=== PATIENT | female | born 1975 | race Hispanic/Latino ===

== ENCOUNTER 2017-03-12 18:43 | Emergency (ER) | payer SELFPAY ==
[~2017-03-12] VITALS: Ht 162.6 cm; Wt 70.5 kg
[2017-03-12 19:03] VITALS: BP 129/67; PULSE 75; RESP 16; O2SAT 100
[2017-03-12 19:58] LABS: BASOPHILS % (AUTO) 0.3 % (0-3); EOSINOPHILS % (AUTO) 3.3 % (0-5); MONOCYTES % (AUTO) 6.6 % (4-12); Mean Corpuscular Hemoglobin 26.9 pg (27.0-35.0); Mean Corpuscular Volume 81.6 fL (81-100); NEUTROPHILS % (AUTO) 42.6 % (40-74); Platelet Count 324 bil/L (150-400)
--- NOTE | 2017-03-12 19:58 | ED.REPORT ---
HPI-Syncope Date of Service Mar 12, 2017 ED Provider: Usman Garcia MD Lorna Dawson is a pleasant 41-year-old woman who denies any medical history, she presents to the [facility] emergency department after syncopal event resulting in her "falling on her face" she reports feeling dizzy mildly short of breath prior to the event. She says she was having an argument with her 18-year-old daughter when this occurred. This has happened 3 previous times , most recent was 9 months ago, she has no primary care doctor and is never seek medical attention for this. She is not on any medications. She denies any current lightheadedness, dizziness, nausea, vomiting, shortness of breath, or chest pain at rest. She does complain of left shoulder and shoulder blade pain, with some paresthesias into her right hand, she said that this has been going on for nearly one year and is not new but since the fall pain has been worse. Daughter witnessed the fall, stated she lost consciousness for roughly 25 seconds. Patient denies being hit, kicked, pushed, or punched. Nursing Notes Stated Complaint: CHEST PAIN Chief Complaint: Chest Pain Nursing Notes Reviewed: Yes Allergies: Coded Allergies: No Known Allergies (Unverified , 03/12/17) General Time Seen by Provider: 19:04 Chief Complaint Lost consciousness Past Medical History Past Medical History Denies any medical problems or medical history Chronic right shoulder and arm pain Past Surgical History Denies having any surgeries Family History Noncontributory Smoking History Never Smoker Social History Lives with family Alcohol Use: Denies alcohol use Drug Use: Denies drug use Occupation Works as a production team member Review of Systems Complete sys rev & neg: except as marked. Physical Exam General: Laying in bed, no apparent distress. HEENT: Normocephalic, bilateral cheeks appear sriram, conjunctiva pink, extraocular muscles intact, there is no pain around the orbit, mandible, zygus, sphenoid, mastoid, TMs intact bilaterally, mucous membranes moist, tongue and oropharynx are atraumatic there is cervical tenderness, midline tenderness from C2 to C7. Cardiovascular: Regular rate and rhythm, no clicks murmurs rubs, peripheral pulses 2/4 equal bilaterally there is mild tenderness to right costochondral joints and clavicle. Patient states it radiates into her right shoulder. Pulmonary: Clear to auscultation bilaterally, no W/R/R. Abdominal: Soft to palpation, bowel sounds present 4, no hepatosplenomegaly. Negative rebound. Extremities: No edema appreciated. There is tenderness at the very medial portion of right scapula, as well as the overlying paraspinal musculature the right thorax, no ecchymosis, no bruising. Neuro: Neurologically grossly intact, strength is equal bilaterally upper and lower extremities. MSK: able to move extremities on their own volition, strength 5 out of 5 equal bilaterally to upper and lower extremities. Initial Vital Signs Vital Signs (First) Date Time Temp Pulse Resp B/P Pulse Ox O2 Delivery O2 Flow Rate FiO2 03/12/17 19:03 36.8 75 16 129/67 100 Room Air Initial VS: Reviewed Interpretation & Diagnostics Interpretation & Diagnostics: Cervical spine CAT scan performed 03/12/2017 IMPRESSION: 1. No acute cervical spine injury. 2. Left low-density, partially calcified thyroid nodule. Nonemergent thyroid ultrasound recommended to further characterize this finding. 3. Questionable right apical pulmonary mass versus pulmonary scar. Dedicated CT of the chest recommended to further characterize this finding. Neoplasm cannot be excluded. Note: The preliminary [facility] interpretation and the final report are concordant. Dictated by: Renetta Mazariegos M.D. on 03/12/2017 at 20:55 Lab Results Interpretation Result Diagram: 03/12/17194403/12/171944 Test 03/12/17 19:45 White Blood Count 7.6th/mm3 (3.8-10.1) Red Blood Count 5.53mil/mm3 (3.90-5.20) Hemoglobin 14.9g/dL (12.0-15.6) Hematocrit 45.1% (35.0-46.0) Mean Corpuscular Volume 81.6fL (81-100) Mean Corpuscular Hemoglobin 26.9pg (27.0-35.0) Mean Corpuscular Hemoglobin Concent 33.0% (32.0-37.0) Red Cell Distribution Width 14.3% (12.3-15.4) Platelet Count 324bil/L (150-400) Neutrophils (%) (Auto) 42.6% (40-74) Lymphocytes (%) (Auto) 47.2% (14-46) Monocytes (%) (Auto) 6.6% (4-12) Eosinophils (%) (Auto) 3.3% (0-5) Basophils (%) (Auto) 0.3% (0-3) Sodium Level 137mEq/L (134-144) Potassium Level 3.7mEq/L (3.5-5.2) Chloride Level 98mEq/L (97-108) Carbon Dioxide Level 24mmol/L (18-29) Blood Urea Nitrogen 17mg/dL (6-24) Creatinine 1.07mg/dL (0.57-1.00) Estimat Glomerular Filtration Rate 81mL/min (>59) Glucose Level 116mg/dL (60-99) Calcium Level 9.7mg/dL (8.5-10.1) Magnesium Level 2.4mg/dL (1.6-2.6) Total Bilirubin 0.3mg/dL (0.0-1.2) Aspartate Amino Transf (AST/SGOT) 23U/L (0-50) Alanine Aminotransferase (ALT/SGPT) 22U/L (0-32) Alkaline Phosphatase 78U/L (25-150) Troponin T < 0.010ug/L (0.0-0.011) Total Protein 8.4g/dL (6.4-8.4) Albumin 4.3g/dL (3.4-5.0) Lab Results Interpretation: Elevated creatinine Negative troponin X-Ray Chest Interpretation Chest Xray Interpretation: IMPRESSION: No acute cardiopulmonary findings. Dictated by: Renetta Mazariegos M.D. on 03/12/2017 at 20:27 Interpretation / Wet Read by: Interpret - Radiologist Re-Eval/Medical Decision Med Decision/Clinical Course Patient was evaluated for cause of syncopal event, cardiac workup was negative for any signs of infarction, remained in sinus rhythm throughout ER visit, neck CT was performed due to fall and cervical midline tenderness. There is no sign of fracture, however incidentally found thyroid nodule and right lung apical nodule. Findings were conveyed to the patient stated understanding with the results. She asked about any evaluation of her chronic right shoulder pain, we advised her that since the pain has not changed and has been present for at least 9 months, is a chronic condition and would require additional evaluation and would be best followed through with primary care provider further be able to organize physical therapy and appropriate management for chronic shoulder pain. Gave patient red flag symptoms to watch for, with strict ER return instructions. Patient stated understanding and agreement. Counseled Regarding: Diagnosis, Lab results, Need for follow-up, When/why to return to ED Discharge & Departure Impression: Primary Impression: Syncope and collapse Additional Impressions: Right shoulder pain Chronicity: chronic Qualified Code: M25.511 - Pain in right shoulder Thyroid nodule Disposition: Home Discharge Condition All VS Reviewed: Yes Condition: Stable Patient Instructions: Syncope (ED), Thyroid Nodules (ED) Additional Instructions: Today you were evaluated for fainting, which is known as a syncopal event, and injury resulting from it. We did not see any evidence that your neck had a fracture, nor are your signs concerning that there is bleeding in your brain. We evaluated your heart, the electrical activity and your heart appears to be normal and doing well. We also looked to see if there is any signs of a heart attack, which there were none. Chest x-ray showed no concerns with your bones, or shape of your heart, there is also no signs of pneumonia. The CAT scan we did of your neck did not show any fractures, however it did show a nodule on her thyroid, which is a lump. The lump needs further evaluation, for which he need to go through primary care doctor. I have placed a referral and are sending a copy of today's results and visit notes to the residency clinic. This is located just across the street from the hospital, and the phone number is [phone]. Please call and schedule an emergency room follow-up. Additionally the CAT scan also showed a nodule in your right lung, this needs follow-up as well. Once again please follow-up through primary care physician, I recommend the residency clinic as they are usually easiest to get into. If you have any chest pain, shortness of breath, lightheadedness, dizziness increase tiredness, slurring her words, unable to think correctly, or weakness/ numbness on one side your body, please return to the emergency department or call 911 if necessary. Referrals: [facility] EDSupervising Provider for APC: Usman Garcia MD Attending Statement Attending attestation: I saw this patient in conjunction with the above named resident. I was present for all umana portions of the history taking and physical examination. I agree with the workup, evaluation, treatment and disposition. Usman Garcia MD copies to: [facility] Nathanael Grant DO Mar 12, 2017 19:58 Usman Garcia MD Mar 12, 2017 22:59
[2017-03-12 20:24] VITALS: BP 145/73; PULSE 94; RESP 16; O2SAT 98
--- NOTE | 2017-03-12 20:28 | DRSVH ---
PROCEDURE: X-RAY CHEST ONE VIEW, PORTABLE ([id number]) INDICATIONS: CHEST PAIN TECHNIQUE: One view of the chest was acquired. COMPARISON: None. FINDINGS: Surgical changes and devices: None. Lungs and pleura: No pleural effusions or pneumothorax. Lungs are clear. Mediastinum: Mediastinal contours appear normal. Heart size is normal. Bones and chest wall: No suspicious bony lesions. Overlying soft tissues appear unremarkable. IMPRESSION: No acute cardiopulmonary findings. Dictated by: Renetta Mazariegos M.D. on 03/12/2017 at 20:27 Approved by: Renetta Mazariegos M.D. on 03/12/2017 at 20:27
[2017-03-12 20:38] LABS: Magnesium 2.4 mg/dL (1.6-2.6); TROPONIN T < 0.010 ug/L (0.0-0.011)
--- NOTE | 2017-03-12 20:59 | DRSVH ---
PROCEDURE: CT CERVICAL SPINE WITHOUT CONTRAST ([id number]) INDICATIONS: fall, midline tenderness. TECHNIQUE: Noncontrast 3 mm thick sections acquired from the skull base to the T4 level. Sagittal and coronal r eformats were then constructed. For radiation dose reduction, the following was used: automated exp osure control, adjustment of mA and/or kV according to patient size. COMPARISON: None. FINDINGS: Image quality: Excellent. Bones: No fractures or dislocations. Visualized superior ribs are intact. Soft tissues: Prevertebral soft tissues are normal in thickness. No paravertebral hematomas. No ap ical pneumothoraces. A 6 x 12 mm spiculated mass versus pulmonary scar is present at the right apex. There is a large low density left thyroid nodule which is partially rim calcified. IMPRESSION: 1. No acute cervical spine injury. 2. Left low-density, partially calcified thyroid nodule. Nonemergent thyroid ultrasound recommended t o further characterize this finding. 3. Questionable right apical pulmonary mass versus pulmonary scar. Dedicated CT of the chest recommen ded to further characterize this finding. Neoplasm cannot be excluded. Note: The preliminary [facility] interpretation and the final report are concordant. Dictated by: Renetta Mazariegos M.D. on 03/12/2017 at 20:55 Approved by: Renetta Mazariegos M.D. on 03/12/2017 at 20:58
[2017-03-12 21:21] VITALS: BP 137/71; PULSE 84; RESP 16; O2SAT 96
== END 2017-03-12 21:27 | disposition home or self-care (01) ==
LOC: SED 18:43 → EDBD 18:43 → SED 21:27
DX: R55 Syncope and collapse (principal); M25.511 Pain in right shoulder; E04.1 Nontoxic single thyroid nodule; W19.XXXA Unspecified fall, initial encounter; Y93.89 Activity, other specified; Y92.9 Unspecified place or not applicable; Y99.8 Other external cause status